=== PATIENT | female | born 2000 | race Caucasian/White ===

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

== ENCOUNTER → 2020-03-21 | Outpatient (CLI) | payer BC | LOC: YCFC.O 11:53 | PROVIDERS: ATTEND Nurse Practitioner | DX: R30.9 Painful micturition, unspecified (principal) ==

== ENCOUNTER 2020-04-05 21:11 | Emergency (ER) | payer BC ==
--- NOTE | 2020-04-05 21:34 | ED.PDOC ---
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, She has pain over the dorsum of her L foot and little pain in the ankle Occurred: this evening Pain - Lower Extremity: severe: Left Foot Method of Injury: twisted Improving Factors: cold therapy, immobilization Worsening Factors: cold therapy, movement Allergies/Adverse Reactions: Allergies NO KNOWN ALLERGY Allergy (Unverified 10/21/12 22:03) Home Medications: Ambulatory Orders Ibuprofen 600 mg PO Q6HRS PRN #20 tab 04/05/20 Tramadol HCl [Conzip] 100 mg PO Q6HRS PRN #20 cap 04/05/20 Review of Systems - Review of Systems Constitutional: States: no symptoms reported EENTM: States: no symptoms reported Respiratory: States: no symptoms reported Cardiology: States: no symptoms reported Gastrointestinal/Abdominal: States: no symptoms reported Genitourinary: States: no symptoms reported Musculoskeletal: States: other - foot pain and swelling, has a form of muscular dystrophy Skin: States: no symptoms reported Neurological: States: no symptoms reported Past Medical History (General) - Patient Medical History Hx Seizures: No Hx Stroke: No Hx Dementia: No Hx Asthma: No Hx of COPD: No Hx Cardiac Disorders: No Hx Congestive Heart Failure: No Hx Pacemaker: No Hx Hypertension: No Hx Thyroid Disease: No Hx Diabetes: No Hx Gastroesophageal Reflux: No Hx Renal Disease: No Hx Cancer: No Hx of HIV: No Hx Hepatitis C: No Hx MRSA: No - Vaccination History Hx Tetanus, Diphtheria Vaccination: Yes Hx Influenza Vaccination: Yes Hx Pneumococcal Vaccination: No - Social History Hx Tobacco Use: No Hx Chewing Tobacco Use: No Hx Alcohol Use: No Hx Substance Use: No Hx Substance Use Treatment: No Hx Depression: No Hx Physical Abuse: No Hx Emotional Abuse: No Hx Suspected Abuse: No - Female History Patient : No Family Medical History - Family History Mother Family History: No Known Physical Exam - Physical Exam General Appearance: Alert, No apparent distress Eyes, Ears, Nose, Throat: normal ENT inspection Neck: non-tender, full range of motion, supple Cardiovascular/Respiratory: regular rate, rhythm, no M/R/G, normal peripheral pulses, normal breath sounds, no respiratory distress Ankle: normal inspection, other - no swelling or pain at L Departure - Departure Clinical Impression: Sprain of foot, left Qualifiers: Encounter type: initial encounter Qualified Code(s): S93.602A - Unspecified sprain of left foot, initial encounter Condition: Good Referrals: China Quevedo FNP [Primary Care Provider] - 1-2 Weeks Prescriptions: Ibuprofen 600 mg PO Q6HRS PRN #20 tab PRN Reason: Pain -- Moderate To Severe Tramadol HCl [Conzip] 100 mg PO Q6HRS PRN #20 cap PRN Reason: Pain Home Medications: Ambulatory Orders Ibuprofen 600 mg PO Q6HRS PRN #20 tab 04/05/20 Tramadol HCl [Conzip] 100 mg PO Q6HRS PRN #20 cap 04/05/20
[2020-04-05 21:47] VITALS: BP 147/99; O2SAT 98
--- NOTE | 2020-04-05 21:59 | RAD ---
EXAM DESCRIPTION: Ankle,Left 3 Views CLINICAL HISTORY: 20 years Female ,Fall COMPARISON: None. TECHNIQUE: Left ankle, 3 view FINDINGS: No acute fractures or dislocations are identified. No osseous destructive lesions. No ankle joint effusion noted. IMPRESSION: No acute fracture is identified. Electronically signed by: Lynne Burr MD 04/05/2020 9:57 PM CDT
--- NOTE | 2020-04-05 22:02 | RAD ---
EXAM: XR Left Foot Complete, 3 Views CLINICAL HISTORY: 20 years old Female; Fall. TECHNIQUE: Frontal, lateral and oblique views of the left foot. COMPARISON: No relevant prior studies available. FINDINGS: BONES/JOINTS: No acute fracture seen. Normal bony alignment. SOFT TISSUES: No acute soft tissue abnormality identified. No radiopaque foreign body seen. IMPRESSION: - No acute fracture seen. Thank you for allowing us to participate in the care of this patient. Electronically signed by: Daren Peterson MD 04/05/2020 10:01 PM CDT
[2020-04-05 23:55] VITALS: TEMP 98.2
== END 2020-04-05 22:40 | disposition home or self-care (01) ==
LOC: ER 21:11
DX: S93.602A Unspecified sprain of left foot, initial encounter (principal); X50.1XXA Overexertion from prolonged static or awkward postures, initial encounter; Y92.9 Unspecified place or not applicable

== ENCOUNTER → 2020-11-19 | Outpatient (CLI) | payer SELFPAY ==
--- NOTE | 2020-11-19 12:12 | US ---
EXAM DESCRIPTION: Soft Tissue,Extremity: ULTRASOUND. CLINICAL HISTORY: 20 years Female DOG BITE, SWELLING LEFT THIGH COMPARISON: None Available. TECHNIQUE: Transcutaneous scanning: Vicente-scale and Doppler modes. FINDINGS: Irregular fluid collection in the lateral thigh at site of palpation. Within the subcutaneous tissue, anterior to the subcutaneous-muscular fascia This fluid collection measures 6.2 x 5.2 x 2.0 cm. Nonvascular. No fluid- fluid level. No definite fluid tract to the skin. IMPRESSION: Hematoma/fluid collection, 6.2 cm greatest dimension, without significant debris at the site of palpation and trauma left lateral thigh. No fluid- fluid level. Electronically signed by: Darius Sky MD 11/19/2020 12:10 PM MANAGER [facility]
== END ==
LOC: YCFC.O 10:07
PROVIDERS: ATTEND Family Medicine
DX: S70.12XA Contusion of left thigh, initial encounter (principal)